=== PATIENT | male | born 1965 | race Caucasian/White ===

== ENCOUNTER 2020-07-06 10:11 | Inpatient (IN) ==
[2020-07-06] MEDS ORDERED: cefOXitin 2,000 MG in Water for inj. (sterile) 20 ML IVP ONE (10:27)
[2020-07-06] MEDS: Ringers Solution, Lactated 1,000 ML IVC SCH ×2 (10:49→14:01)
[2020-07-06] MEDS ORDERED: Acetaminophen IV 1,000 MG/100 ML INFUS..BTL IVPB ONE (11:08)
[2020-07-06] MEDS ORDERED: Famotidine 20 MG/2 ML VIAL IVP ONE (11:08)
[2020-07-06] MEDS ORDERED: Ondansetron ODT 4 MG TAB.RAPDIS SL ONE (11:08)
[2020-07-06] MEDS ORDERED: *HR* OxyCODONE ER (12 HR) 10 MG TABLET PO ONE (11:08)
[2020-07-06] MEDS ORDERED: Pregabalin 75 MG CAPSULE PO ONE (11:15)
[2020-07-06] MEDS ORDERED: Lidocaine -MPF 4% 5 ML AMPUL ONE (12:07)
[2020-07-06] MEDS ORDERED: *HR* FentaNYL (PF) 100 MCG/2 ML VIAL ONE ×2 (12:07→13:09)
[2020-07-06] MEDS ORDERED: Dexamethasone 4 MG/ML VIAL ONE (12:07)
[2020-07-06] MEDS ORDERED: *HR* Rocuronium Bromide 50 MG/5 ML VIAL ONE ×2 (12:07→14:19)
[2020-07-06] MEDS ORDERED: *HR* Propofol 200 MG/20 ML VIAL IVP ONE (12:07)
[2020-07-06] MEDS ORDERED: Ondansetron 4 MG/2 ML VIAL ONE (12:07)
[2020-07-06] MEDS ORDERED: *HR* Midazolam HCl 2 MG/2 ML VIAL ONE (12:07)
[2020-07-06] MEDS ORDERED: Lidocaine -MPF 2% 2 ML VIAL ONE ×2 (12:07→15:31)
[2020-07-06] MEDS ORDERED: Ondansetron 4 MG/2 ML VIAL IVP PRN ×2 (12:26→17:15)
[2020-07-06] MEDS ORDERED: flumazeniL 0.5 MG/5 ML VIAL IVP PRN (12:26)
[2020-07-06] MEDS ORDERED: Albuterol 2.5 MG/3 ML NEBULIZER IH PRN (12:26)
[2020-07-06] MEDS ORDERED: *HR* FentaNYL (PF) 100 MCG/2 ML VIAL IVP PRN (12:26)
[2020-07-06] MEDS ORDERED: Naloxone 0.4 MG/ML INJ IVP PRN ×2 (12:26→17:15)
[2020-07-06] MEDS ORDERED: *HR* HYDROmorphone PF 0.5 MG/0.5 ML SYRINGE IVP PRN (12:26)
[2020-07-06] MEDS ORDERED: *HR* Metoprolol 5 MG/5 ML VIAL IVP PRN ×2 (12:26→17:15)
[2020-07-06] MEDS ORDERED: *HR* Labetalol 20 MG/4 ML SYRINGE IVP ONE (13:23)
[2020-07-06] MEDS ORDERED: Ropivacaine/PF 0.5% 30 ML VIAL ONE (15:21)
[2020-07-06] MEDS ORDERED: *HR* HYDROMORPHONE 2 MG/ML VIAL ONE (15:38)
[2020-07-06] MEDS ORDERED: *HR* OxyCODONE Oral Soln 5 MG/5 ML UD.LIQ PO PRN (17:15)
[2020-07-06] MEDS ORDERED: *HR* Promethazine 25 MG/ML VIAL IVP PRN (17:15)
[2020-07-06] MEDS: levETIRAcetam 250 MG TABLET PO SCH (20:02)
[2020-07-06] MEDS: Gabapentin 400 MG CAPSULE PO SCH ×2 (20:02→20:06)
[2020-07-06] MEDS: Acetaminophen IV 1,000 MG/100 ML INFUS..BTL IVPB SCH (20:02)
[2020-07-06] MEDS: Ketorolac 15 MG/ML VIAL IVP SCH (20:02)
[2020-07-06] MEDS: 0.9 % Sodium Chloride 1,000 ML IVC SCH (20:03)
[2020-07-07] MEDS: Acetaminophen IV 1,000 MG/100 ML INFUS..BTL IVPB SCH ×5 (00:16→23:33)
[2020-07-07] MEDS: Ketorolac 15 MG/ML VIAL IVP SCH ×2 (00:17→05:33)
[2020-07-07] MEDS: Piperacillin/Tazobactam 3.375 GM in 0.9 % Sodium Chloride Mini Bag 100 ML IVPB SCH ×3 (00:17→16:28)
[2020-07-07] MEDS: *HR* OxyCODONE Oral Soln 5 MG/5 ML UD.LIQ PO PRN ×2 (00:22→11:05)
[2020-07-07] MEDS: 0.9 % Sodium Chloride 1,000 ML IVC SCH ×2 (05:34→16:27)
[2020-07-07 06:33] LABS: Basophils % 0.1 %; Hematocrit 35.9 % (37.5-50.1); Hemoglobin 11.6 g/dL (12.9-16.9); Immature Granulocytes % 0.4 % (0-4); Lymphocytes # 1.1 K/mcL (0.6-4.6); Lymphocytes % 9.3 %; Mean Corpuscular HGB Conc 32.3 g/dL (31.6-35.5); Mean Corpuscular Hemoglobin 28.4 pg (28.0-33.3); Mean Platelet Volume 10.5 fL (9.4-12.4); Monocytes # 0.7 K/mcL (0.0-1.3); Monocytes % 5.9 %; Neutrophils # 9.5 K/mcL (1.6-8.9); Platelet Count 195 K/mcL (140-400); Red Blood Count 4.08 M/mcL (4.19-5.50); Red Cell Distribution Width 12.2 % (11.5-14.5); Segmented Neutrophils % 84.3 %; White Blood Count 11.3 K/mcL (4.3-11.1)
[2020-07-07 06:52] LABS: BUN/Creatinine Ratio 16 (6-26); Blood Urea Nitrogen 18 mg/dL (6-20); Calcium 8.4 mg/dL (8.6-10.3); Carbon Dioxide 26 mEq/L (23-29); Chloride 104 mEq/L (98-107); Glucose 135 mg/dL (70-105); Magnesium 2.1 mg/dL (1.6-2.6); Osmolality,Calculated 284 (280-300); Phosphorous 2.9 mg/dL (2.7-4.5); Potassium 4.2 mEq/L (3.5-5.1); Sodium 135 mEq/L (136-145); eGFR For African Americans > 60 (> 60); eGFR For Non-African Americans > 60 (> 60)
[2020-07-07] MEDS: levETIRAcetam 250 MG TABLET PO SCH ×2 (08:46→20:24)
[2020-07-07] MEDS: Pantoprazole 40 MG VIAL IVP SCH (08:46)
[2020-07-07] MEDS: Gabapentin 400 MG CAPSULE PO SCH ×3 (08:46→20:24)
[2020-07-07] MEDS: *HR* Heparin 5,000 UNIT/ML VIAL SQ SCH (16:31)
[2020-07-08] MEDS: 0.9 % Sodium Chloride 1,000 ML IVC SCH ×2 (02:17→19:36)
[2020-07-08] MEDS: *HR* Heparin 5,000 UNIT/ML VIAL SQ SCH ×2 (05:53→17:47)
[2020-07-08] MEDS: Acetaminophen IV 1,000 MG/100 ML INFUS..BTL IVPB SCH ×4 (05:54→23:11)
[2020-07-08 06:58] LABS: Basophils % 0.3 %; Eosinophils % 0.3 %; Hematocrit 32.6 % (37.5-50.1); Hemoglobin 10.5 g/dL (12.9-16.9); Immature Granulocytes % 0.3 % (0-4); Lymphocytes # 1.4 K/mcL (0.6-4.6); Mean Corpuscular HGB Conc 32.2 g/dL (31.6-35.5); Mean Corpuscular Hemoglobin 28.2 pg (28.0-33.3); Mean Corpuscular Volume 87.6 fL (83.0-100.0); Monocytes # 0.9 K/mcL (0.0-1.3); Monocytes % 8.9 %; Neutrophils # 7.2 K/mcL (1.6-8.9); Platelet Count 159 K/mcL (140-400); Red Blood Count 3.72 M/mcL (4.19-5.50); Red Cell Distribution Width 12.6 % (11.5-14.5); Segmented Neutrophils % 75.2 %; White Blood Count 9.6 K/mcL (4.3-11.1)
[2020-07-08 07:15] LABS: BUN/Creatinine Ratio 16 (6-26); Blood Urea Nitrogen 14 mg/dL (6-20); Calcium 8.2 mg/dL (8.6-10.3); Carbon Dioxide 22 mEq/L (23-29); Chloride 108 mEq/L (98-107); Glucose 117 mg/dL (70-105); Magnesium 2.2 mg/dL (1.6-2.6); Osmolality,Calculated 288 (280-300); Potassium 3.6 mEq/L (3.5-5.1); Sodium 138 mEq/L (136-145); eGFR For African Americans > 60 (> 60); eGFR For Non-African Americans > 60 (> 60)
[2020-07-08] MEDS ORDERED: *HR* FentaNYL (PF) 100 MCG/2 ML VIAL IVP PRN (08:16)
[2020-07-08] MEDS: levETIRAcetam 250 MG TABLET PO SCH ×2 (08:40→21:46)
[2020-07-08] MEDS: Gabapentin 400 MG CAPSULE PO SCH ×3 (08:40→21:46)
[2020-07-08] MEDS: Pantoprazole 40 MG VIAL IVP SCH (08:41)
[2020-07-08] MEDS ORDERED: 0.9 % Sodium Chloride 1,000 ML IVC SCH (09:15)
[2020-07-08] MEDS ORDERED: *HR* LORazepam 2 MG/ML VIAL IVP ONE (17:16)
[2020-07-08] MEDS: Metoclopramide 10 MG/2 ML VIAL IVP SCH ×2 (17:47→23:11)
[2020-07-08] MEDS ORDERED: *HR* LORazepam 2 MG/ML VIAL IVP PRN (19:12)
[2020-07-08] MEDS: Piperacillin/Tazobactam 3.375 GM in 0.9 % Sodium Chloride Mini Bag 100 ML IVPB SCH ×2 (19:35→23:09)
[2020-07-09] MEDS: Acetaminophen IV 1,000 MG/100 ML INFUS..BTL IVPB SCH ×2 (06:54→11:35)
[2020-07-09] MEDS: *HR* Heparin 5,000 UNIT/ML VIAL SQ SCH ×2 (06:54→17:21)
[2020-07-09] MEDS: Metoclopramide 10 MG/2 ML VIAL IVP SCH ×3 (06:54→17:31)
[2020-07-09 07:02] LABS: Basophils # 0.1 K/mcL (0.0-0.2); Basophils % 0.5 %; Eosinophils # 0.3 K/mcL (0.0-0.6); Hematocrit 40.2 % (37.5-50.1); Immature Granulocytes % 0.4 % (0-4); Lymphocytes # 1.8 K/mcL (0.6-4.6); Lymphocytes % 13.9 %; Mean Corpuscular HGB Conc 31.6 g/dL (31.6-35.5); Mean Corpuscular Volume 88.7 fL (83.0-100.0); Mean Platelet Volume 10.6 fL (9.4-12.4); Monocytes # 1.1 K/mcL (0.0-1.3); Monocytes % 8.3 %; Neutrophils # 9.7 K/mcL (1.6-8.9); Platelet Count 207 K/mcL (140-400); Red Blood Count 4.53 M/mcL (4.19-5.50); Red Cell Distribution Width 12.5 % (11.5-14.5); Segmented Neutrophils % 74.9 %
[2020-07-09 07:03] LABS: Hemoglobin 12.7 g/dL (12.9-16.9)
[2020-07-09 07:23] LABS: BUN/Creatinine Ratio 15 (6-26); Blood Urea Nitrogen 12 mg/dL (6-20); Calcium 8.7 mg/dL (8.6-10.3); Carbon Dioxide 25 mEq/L (23-29); Chloride 104 mEq/L (98-107); Glucose 109 mg/dL (70-105); Osmolality,Calculated 286 (280-300); Phosphorous 1.7 mg/dL (2.7-4.5); Potassium 3.6 mEq/L (3.5-5.1); Sodium 138 mEq/L (136-145); eGFR For African Americans > 60 (> 60); eGFR For Non-African Americans > 60 (> 60)
[2020-07-09] MEDS ORDERED: Isovue-370 500 ML BOTTLE IVP ONE (07:52)
[2020-07-09] MEDS: 0.9 % Sodium Chloride 1,000 ML IVC SCH ×2 (08:37→22:21)
[2020-07-09] MEDS: Piperacillin/Tazobactam 3.375 GM in 0.9 % Sodium Chloride Mini Bag 100 ML IVPB SCH ×2 (08:38→15:28)
[2020-07-09] MEDS: levETIRAcetam 250 MG TABLET PO SCH ×2 (08:38→23:33)
[2020-07-09] MEDS: Gabapentin 400 MG CAPSULE PO SCH ×3 (08:38→23:32)
[2020-07-09] MEDS ORDERED: Lidocaine -MPF 2% 2 ML VIAL ONE ×2 (16:33→18:30)
[2020-07-09] MEDS ORDERED: *HR* Rocuronium Bromide 50 MG/5 ML VIAL ONE (16:33)
[2020-07-09] MEDS ORDERED: *HR* Midazolam HCl 2 MG/2 ML VIAL ONE ×2 (16:34→18:56)
[2020-07-09] MEDS ORDERED: *HR* FentaNYL (PF) 100 MCG/2 ML VIAL ONE ×3 (16:34→19:25)
[2020-07-09] MEDS ORDERED: Dexamethasone 4 MG/ML VIAL ONE ×2 (16:36→18:30)
[2020-07-09] MEDS ORDERED: Ondansetron 4 MG/2 ML VIAL ONE ×2 (16:36→18:30)
[2020-07-09] MEDS ORDERED: *HR* Propofol 200 MG/20 ML VIAL IVP ONE ×2 (18:27→21:01)
[2020-07-09] MEDS ORDERED: Lidocaine HCL 4 ML Topical Solution (Laryng-O-Jet Kit Sterile Pak) TP ONE (18:30)
[2020-07-09] MEDS ORDERED: *HR* OxyCODONE Immed Rel 5 MG TABLET PO PRN (18:43)
[2020-07-09] MEDS ORDERED: Ondansetron 4 MG/2 ML VIAL IVP PRN ×2 (18:43→23:09)
[2020-07-09] MEDS ORDERED: Fluconazole 200 MG/100 ML 200 MG/100 ML BAG IVPB SCH (21:45)
[2020-07-09] MEDS: *HR* HYDROmorphone PF 0.5 MG/0.5 ML SYRINGE IVP PRN ×2 (21:46→21:54)
[2020-07-09] MEDS ORDERED: *HR* Labetalol 20 MG/4 ML SYRINGE IVP ONE (22:12)
[2020-07-09] MEDS: *HR* Labetalol 20 MG/4 ML SYRINGE IVP ONE ×2 (22:13→23:31)
[2020-07-09] MEDS ORDERED: *HR* OxyCODONE Oral Soln 5 MG/5 ML UD.LIQ PO PRN (23:09)
[2020-07-09] MEDS ORDERED: *HR* LORazepam 2 MG/ML VIAL IVP PRN (23:09)
[2020-07-09] MEDS ORDERED: Naloxone 0.4 MG/ML INJ IVP PRN (23:09)
[2020-07-09] MEDS ORDERED: *HR* FentaNYL (PF) 100 MCG/2 ML VIAL IVP PRN (23:09)
[2020-07-09] MEDS ORDERED: 0.9 % Sodium Chloride 1,000 ML IVC SCH (23:09)
[2020-07-09] MEDS ORDERED: Chloraseptic Spray 177 ML BOTTLE MM PRN (23:09)
[2020-07-09] MEDS ORDERED: *HR* Metoprolol 5 MG/5 ML VIAL IVP PRN (23:09)
[2020-07-10] MEDS: *HR* OxyCODONE Oral Soln 5 MG/5 ML UD.LIQ PO PRN
[2020-07-10] MEDS: Piperacillin/Tazobactam 3.375 GM in 0.9 % Sodium Chloride Mini Bag 100 ML IVPB SCH ×4 (00:01→23:49)
[2020-07-10] MEDS: Ipratropium/Albuterol Neb 3 ML IH SCH ×5 (00:03→21:59)
[2020-07-10] MEDS: Orphenadrine 60 MG/2 ML VIAL IVP SCH ×2 (06:12→17:09)
[2020-07-10] MEDS: Metoclopramide 10 MG/2 ML VIAL IVP SCH ×5 (06:13→23:37)
[2020-07-10] MEDS: *HR* Heparin 5,000 UNIT/ML VIAL SQ SCH ×2 (06:13→17:07)
[2020-07-10 07:20] LABS: BUN/Creatinine Ratio 21 (6-26); Blood Urea Nitrogen 18 mg/dL (6-20); Calcium 7.8 mg/dL (8.6-10.3); Carbon Dioxide 20 mEq/L (23-29); Chloride 108 mEq/L (98-107); Glucose 169 mg/dL (70-105); Osmolality,Calculated 292 (280-300); Potassium 4.4 mEq/L (3.5-5.1); Sodium 138 mEq/L (136-145); eGFR For African Americans > 60 (> 60); eGFR For Non-African Americans > 60 (> 60)
[2020-07-10 09:42] LABS: Nucleated Red Blood Cells 0.2 /100 WBC (0); Red Cell Distribution Width 12.7 % (11.5-14.5)
[2020-07-10 09:44] LABS: Basophils % 0.3 %; Eosinophils % 0.2 %; Hematocrit 34.4 % (37.5-50.1); Hemoglobin 11.3 g/dL (12.9-16.9); Immature Granulocytes % 0.9 % (0-4); Immature Platelets 7.4 % (1.1-6.1); Lymphocytes # 1.3 K/mcL (0.6-4.6); Lymphocytes % 8.1 %; Mean Corpuscular HGB Conc 32.8 g/dL (31.6-35.5); Mean Corpuscular Volume 85.1 fL (83.0-100.0); Mean Platelet Volume 11.4 fL (9.4-12.4); Monocytes # 1.3 K/mcL (0.0-1.3); Platelet Count 233 K/mcL (140-400); Red Blood Count 4.04 M/mcL (4.19-5.50); Segmented Neutrophils % 82.5 %; White Blood Count 15.7 K/mcL (4.3-11.1)
[2020-07-10 09:46] LABS: Basophils # 0.1 K/mcL (0.0-0.2)
[2020-07-10] MEDS ORDERED: Lidocaine -MPF 1% 5 ML AMPUL INFILT ONE (10:00)
[2020-07-10] MEDS: Gabapentin 400 MG CAPSULE PO SCH ×3 (10:34→20:48)
[2020-07-10 10:42] LABS: Triglycerides 123 mg/dL (< 150)
[2020-07-10] MEDS ORDERED: D10% in Water 500 ML IVC PRN (10:53)
[2020-07-10] MEDS ORDERED: *HR* Dextrose 50 % in Water (Vial) 50 ML VIAL IVP PRN (14:51)
[2020-07-10] MEDS ORDERED: D5% in Water 1,000 ML IVC PRN (14:51)
[2020-07-10] MEDS ORDERED: Dextrose Gel 15 GM/37.5 ML TUBE PO PRN ×2 (14:51)
[2020-07-10] MEDS: 0.9 % Sodium Chloride 1,000 ML IVC SCH (14:55)
[2020-07-10] MEDS: Insulin LISPRO 300 UNITS/3 ML VIAL SQ SCH ×3 (16:54→23:49)
[2020-07-10] MEDS ORDERED: Clinimix E 5%-15% SOLUTION 2,000 ML with MVI, adult with vitamin K 10 ML IVC SCH (17:00)
[2020-07-10] MEDS: *HR* Metoprolol 5 MG/5 ML VIAL IVP SCH ×2 (17:08→23:48)
[2020-07-10] MEDS: Fluconazole 200 MG/100 ML 200 MG/100 ML BAG IVPB SCH (20:48)
[2020-07-11] MEDS: Ipratropium/Albuterol Neb 3 ML IH SCH ×4 (03:54→21:49)
[2020-07-11] MEDS: Insulin LISPRO 300 UNITS/3 ML VIAL SQ SCH ×5 (04:35→21:28)
[2020-07-11 05:09] LABS: Basophils % 0.2 %; Eosinophils # 0.4 K/mcL (0.0-0.6); Eosinophils % 4.2 %; Hematocrit 30.2 % (37.5-50.1); Immature Granulocytes % 0.4 % (0-4); Lymphocytes # 1.4 K/mcL (0.6-4.6); Lymphocytes % 13.8 %; Mean Corpuscular HGB Conc 32.1 g/dL (31.6-35.5); Mean Corpuscular Hemoglobin 28.3 pg (28.0-33.3); Mean Platelet Volume 10.8 fL (9.4-12.4); Monocytes # 0.9 K/mcL (0.0-1.3); Neutrophils # 7.3 K/mcL (1.6-8.9); Platelet Count 232 K/mcL (140-400); Red Blood Count 3.43 M/mcL (4.19-5.50); Red Cell Distribution Width 12.8 % (11.5-14.5); Segmented Neutrophils % 72.4 %; White Blood Count 10.1 K/mcL (4.3-11.1)
[2020-07-11 05:20] LABS: Hemoglobin 9.7 g/dL (12.9-16.9)
[2020-07-11 05:44] LABS: BUN/Creatinine Ratio 22 (6-26); Blood Urea Nitrogen 16 mg/dL (6-20); Calcium 7.8 mg/dL (8.6-10.3); Carbon Dioxide 29 mEq/L (23-29); Chloride 104 mEq/L (98-107); Glucose 151 mg/dL (70-105); Magnesium 2.2 mg/dL (1.6-2.6); Osmolality,Calculated 290 (280-300); Phosphorous 1.8 mg/dL (2.7-4.5); Potassium 3.1 mEq/L (3.5-5.1); Sodium 138 mEq/L (136-145); eGFR For African Americans > 60 (> 60); eGFR For Non-African Americans > 60 (> 60)
[2020-07-11] MEDS: *HR* Metoprolol 5 MG/5 ML VIAL IVP SCH ×3 (06:05→16:58)
[2020-07-11] MEDS: Orphenadrine 60 MG/2 ML VIAL IVP SCH ×2 (06:05→16:58)
[2020-07-11] MEDS: Metoclopramide 10 MG/2 ML VIAL IVP SCH ×3 (06:05→16:58)
[2020-07-11] MEDS: *HR* Heparin 5,000 UNIT/ML VIAL SQ SCH ×2 (06:06→16:58)
[2020-07-11] MEDS: Fluconazole 200 MG/100 ML 200 MG/100 ML BAG IVPB SCH (08:55)
[2020-07-11] MEDS: Gabapentin 400 MG CAPSULE PO SCH ×3 (08:55→22:48)
[2020-07-11] MEDS: Piperacillin/Tazobactam 3.375 GM in 0.9 % Sodium Chloride Mini Bag 100 ML IVPB SCH ×2 (08:56→17:00)
[2020-07-11] MEDS: 0.9 % Sodium Chloride 1,000 ML IVC SCH (15:39)
[2020-07-11] MEDS ORDERED: Clinimix E 5%-15% SOLUTION 2,000 ML with MVI, adult with vitamin K 10 ML IVC SCH (17:00)
[2020-07-12] MEDS: Insulin LISPRO 300 UNITS/3 ML VIAL SQ SCH ×6 (00:27→20:43)
[2020-07-12] MEDS: *HR* Metoprolol 5 MG/5 ML VIAL IVP SCH ×4 (00:30→18:47)
[2020-07-12] MEDS: Metoclopramide 10 MG/2 ML VIAL IVP SCH ×4 (00:31→18:47)
[2020-07-12] MEDS: Piperacillin/Tazobactam 3.375 GM in 0.9 % Sodium Chloride Mini Bag 100 ML IVPB SCH ×4 (00:31→16:37)
[2020-07-12 03:09] LABS: Basophils % 0.3 %; Eosinophils # 0.7 K/mcL (0.0-0.6); Eosinophils % 7.2 %; Hematocrit 31.3 % (37.5-50.1); Immature Granulocytes % 0.6 % (0-4); Lymphocytes # 1.5 K/mcL (0.6-4.6); Lymphocytes % 16.9 %; Mean Corpuscular HGB Conc 31.9 g/dL (31.6-35.5); Mean Corpuscular Hemoglobin 28.7 pg (28.0-33.3); Mean Corpuscular Volume 89.7 fL (83.0-100.0); Mean Platelet Volume 10.8 fL (9.4-12.4); Monocytes # 0.8 K/mcL (0.0-1.3); Monocytes % 9.2 %; Neutrophils # 5.9 K/mcL (1.6-8.9); Platelet Count 237 K/mcL (140-400); Red Blood Count 3.49 M/mcL (4.19-5.50); Red Cell Distribution Width 12.9 % (11.5-14.5); Segmented Neutrophils % 65.8 %
[2020-07-12 03:28] LABS: BUN/Creatinine Ratio 19 (6-26); Blood Urea Nitrogen 12 mg/dL (6-20); Calcium 7.7 mg/dL (8.6-10.3); Carbon Dioxide 26 mEq/L (23-29); Chloride 107 mEq/L (98-107); Glucose 136 mg/dL (70-105); Magnesium 2.2 mg/dL (1.6-2.6); Osmolality,Calculated 288 (280-300); Phosphorous 3.3 mg/dL (2.7-4.5); Potassium 3.6 mEq/L (3.5-5.1); Sodium 138 mEq/L (136-145); eGFR For African Americans > 60 (> 60); eGFR For Non-African Americans > 60 (> 60)
[2020-07-12] MEDS: *HR* Heparin 5,000 UNIT/ML VIAL SQ SCH ×2 (06:11→18:46)
[2020-07-12] MEDS: Orphenadrine 60 MG/2 ML VIAL IVP SCH ×2 (06:11→18:47)
[2020-07-12] MEDS: Gabapentin 400 MG CAPSULE PO SCH ×3 (10:13→21:00)
[2020-07-12] MEDS: Fluconazole 200 MG/100 ML 200 MG/100 ML BAG IVPB SCH (10:13)
[2020-07-12] MEDS: 0.9 % Sodium Chloride 1,000 ML IVC SCH (12:58)
[2020-07-12] MEDS ORDERED: Clinimix E 5%-15% SOLUTION 2,000 ML with MVI, adult with vitamin K 10 ML IVC SCH (17:00)
[2020-07-12] MEDS: *HR* OxyCODONE Oral Soln 5 MG/5 ML UD.LIQ PO PRN (20:59)
[2020-07-13] MEDS: Insulin LISPRO 300 UNITS/3 ML VIAL SQ SCH ×6 (00:48→20:50)
[2020-07-13] MEDS: Metoclopramide 10 MG/2 ML VIAL IVP SCH ×4 (00:57→17:06)
[2020-07-13] MEDS: *HR* Metoprolol 5 MG/5 ML VIAL IVP SCH ×4 (00:57→17:06)
[2020-07-13] MEDS: Piperacillin/Tazobactam 3.375 GM in 0.9 % Sodium Chloride Mini Bag 100 ML IVPB SCH ×4 (00:58→23:18)
[2020-07-13 05:50] LABS: Basophils # 0.1 K/mcL (0.0-0.2); Basophils % 0.7 %; Eosinophils # 0.8 K/mcL (0.0-0.6); Eosinophils % 10.5 %; Hematocrit 32.2 % (37.5-50.1); Hemoglobin 10.2 g/dL (12.9-16.9); Immature Granulocytes % 0.8 % (0-4); Lymphocytes # 1.7 K/mcL (0.6-4.6); Lymphocytes % 23.8 %; Mean Corpuscular HGB Conc 31.7 g/dL (31.6-35.5); Mean Corpuscular Volume 88.5 fL (83.0-100.0); Mean Platelet Volume 10.5 fL (9.4-12.4); Monocytes # 0.7 K/mcL (0.0-1.3); Monocytes % 9.4 %; Platelet Count 272 K/mcL (140-400); Red Blood Count 3.64 M/mcL (4.19-5.50); Red Cell Distribution Width 12.6 % (11.5-14.5); Segmented Neutrophils % 54.8 %; White Blood Count 7.3 K/mcL (4.3-11.1)
[2020-07-13 06:04] LABS: BUN/Creatinine Ratio 22 (6-26); Blood Urea Nitrogen 15 mg/dL (6-20); Calcium 7.9 mg/dL (8.6-10.3); Carbon Dioxide 25 mEq/L (23-29); Chloride 107 mEq/L (98-107); Glucose 102 mg/dL (70-105); Magnesium 2.2 mg/dL (1.6-2.6); Osmolality,Calculated 285 (280-300); Phosphorous 3.4 mg/dL (2.7-4.5); Potassium 3.7 mEq/L (3.5-5.1); Sodium 137 mEq/L (136-145); eGFR For African Americans > 60 (> 60); eGFR For Non-African Americans > 60 (> 60)
[2020-07-13] MEDS: Orphenadrine 60 MG/2 ML VIAL IVP SCH ×2 (06:06→17:06)
[2020-07-13] MEDS: *HR* Heparin 5,000 UNIT/ML VIAL SQ SCH ×2 (06:07→17:06)
[2020-07-13] MEDS: Gabapentin 400 MG CAPSULE PO SCH ×3 (08:24→21:04)
[2020-07-13] MEDS: Fluconazole 200 MG/100 ML 200 MG/100 ML BAG IVPB SCH (08:29)
[2020-07-13] MEDS ORDERED: Ibuprofen 800 MG TABLET PO PRN (11:30)
[2020-07-13] MEDS ORDERED: *HR* OxyCODONE Immed Rel 5 MG TABLET PO PRN (11:30)
[2020-07-13] MEDS ORDERED: *HR* OxyCODONE Oral Soln 5 MG/5 ML UD.LIQ PO PRN (11:31)
[2020-07-14 04:06] LABS: Basophils # 0.1 K/mcL (0.0-0.2); Basophils % 0.7 %; Eosinophils # 0.6 K/mcL (0.0-0.6); Eosinophils % 8.5 %; Hemoglobin 9.8 g/dL (12.9-16.9); Lymphocytes # 1.6 K/mcL (0.6-4.6); Lymphocytes % 22.3 %; Mean Corpuscular HGB Conc 32.7 g/dL (31.6-35.5); Mean Corpuscular Hemoglobin 28.7 pg (28.0-33.3); Mean Platelet Volume 10.3 fL (9.4-12.4); Monocytes # 0.6 K/mcL (0.0-1.3); Monocytes % 8.3 %; Neutrophils # 4.3 K/mcL (1.6-8.9); Platelet Count 269 K/mcL (140-400); Red Blood Count 3.41 M/mcL (4.19-5.50); Red Cell Distribution Width 12.6 % (11.5-14.5); Segmented Neutrophils % 59.2 %; White Blood Count 7.3 K/mcL (4.3-11.1)
[2020-07-14] MEDS: Orphenadrine 60 MG/2 ML VIAL IVP SCH (06:31)
[2020-07-14] MEDS: *HR* Heparin 5,000 UNIT/ML VIAL SQ SCH (06:32)
[2020-07-14 07:14] VITALS: BP 128/82
== END 2020-07-14 10:44 | disposition home or self-care (01) | DRG 330 ==
LOC: SAMDAY 10:11 → 3ANU 17:11
PROVIDERS: ADMIT Surgery; ATTEND Surgery